=== PATIENT | female | born 1955 | race Caucasian/White ===

== ENCOUNTER → 2018-01-11 | Outpatient (CLI) | payer MEDICARE, MEDICAID ==
[~2018-01-11] MED LIST: ACET325T14 PO; ALBU18HF INH; ALPR0.25 PO; AMIT25TA PO; AMIT50TA PO; BENA40TA2 PO; CA C1TAB60 PO; CALC-76 PO; CALC1CAP8 PO; CEFT2FRO2 IV; CEPH-368 PO; CYAN50LO PO; CYCL-259 PO; DAPT500V6 IV; DHEA PO; DIAZ5TAB PO; ENAL2.5T32 PO; ESCI20TA10 PO; ESTR1TAB15 PO; GABA300C10 PO; GABA600T2 PO; HYDR-3240 PO; HYDR-3307 PO; HYDR-882 PO; KCL PO; LEVO100T5 PO; LEVO112T4 PO; LEVO125T5 PO; LORA0.5T PO; LORA10CA PO; LORA10TA62 PO; LOSA100T6 PO; MAGN400O7 PO; MELA5TAB10 SL; MELA5TAB19 PO; MELO15TA24 PO; MELO7.5T31 PO; METH750T87 PO; MONT10TA9 PO; MULT-508 PO; MULT-767 PO; NALT50TA PO; NYST60PO TD; OMEP20CA9 PO; ONDA4SOL2 IV; OXYC-307 PO; OXYC5TAB3 PO; POTA10TA6 PO; POTA20TA89 PO; PRAS1TAB2 PO; PROM25TA10 IM; PROP20TA PO; RIZA10TA20 PO; SENN8.6T98 PO; TIZA4TAB PO; TOPI100T8 PO; TOPI50TA8 PO; TRAM50TA2 PO; TRAZ150T62 PO; VENL150T PO; VISION ESSENTIALS PO; VIT B-12 PO; ZOLP-413 PO; [UNRECOGNIZED DRUG - CODE] PO; [UNRECOGNIZED DRUG - OTHER] PO; [UNRECOGNIZED DRUG - OTHER] PO
[2018-01-11 11:36] LABS: BASOPHILS # (AUTO) 0.02 x10^3/uL (0-0.1); BASOPHILS % (AUTO) 0 % (0-1); EOSINOPHILS # (AUTO) 0.28 x10^3/uL (0-0.4); EOSINOPHILS % (AUTO) 5 % (1-7); LYMPHOCYTES % (AUTO) 28 % (22-44); MD NO; MEAN CORPUSCULAR HEMOGLOBIN 31.6 pg (27.0-34.8); MEAN CORPUSCULAR HGB CONC 33.2 g/dL (32.4-35.8); MEAN CORPUSCULAR VOLUME 95.3 fL (80-100); MEAN PLATELET VOLUME 6.6 fL (7.4-10.4); MONOCYTES # (AUTO) 0.53 x10^3/uL (0.2-0.8); MONOCYTES % (AUTO) 9 % (2-9); NEUTROPHILS # (AUTO) 3.25 x10^3/uL (1.8-6.8); NEUTROPHILS % (AUTO) 57 % (42-75); PLATELET COUNT 248 x10^3/uL (130-400); RED BLOOD COUNT 4.39 x10^6/uL (3.82-5.3); RED CELL DISTRIBUTION WIDTH 16.2 % (9.6-15.2)
[2018-01-11 11:46] LABS: ALBUMIN 3.6 g/dL (3.4-5.0); ANION GAP 7 mmol/L (5-15); CALCIUM 8.9 mg/dL (8.5-10.1); CHLORIDE 112 mmol/L (98-107)
[2018-01-11 11:50] LABS: ALANINE AMINOTRANSFERASE 18 U/L (12-78); ALKALINE PHOSPHATASE 174 U/L (45-117); BILIRUBIN,TOTAL 0.5 mg/dL (0.2-1.0); TOTAL PROTEIN 7.5 g/dL (6.4-8.2)
[2018-01-11 13:03] LABS: HEMOGLOBIN A1C 5.3 % (4.2-6.3)
[2018-01-11 18:15] LABS: INTERNATIONAL NORMALIZED RATIO 1.15 (0.93-1.1); PROTHROMBIN TIME 11.9 Seconds (9.6-11.5)
== END | disposition home or self-care (01) ==
LOC: STAR 10:14
PROVIDERS: ATTEND Orthopaedic Surgery
DX: Z01.818 Encounter for other preprocedural examination (principal); M17.12 Unilateral primary osteoarthritis, left knee; I10 Essential (primary) hypertension; Z79.899 Other long term (current) drug therapy
CPT/HCPCS: 36415; 80053; 83036; 85025; 85610; 85730; 87081; 87147

== ENCOUNTER 2018-01-19 11:35 | Inpatient (IN) | payer MEDICARE, MEDICAID ==
[~2018-01-19] VITALS: Ht 163.8 cm; Wt 111.0 kg
[~2018-01-19 11:35] MED LIST changes: +BUPIVACAINE/PF 0.5% ONE; +EPINEPHRINE 1 MG/ML, 1ML ONE; +KETOROLAC 60 MG/2 ML ONE; -MELO7.5T31 PO; -OXYC5TAB3 PO; +SODIUM CHLORIDE 0.9% 100 ML ONE; -TRAM50TA2 PO; +TRANEXAMIC ACID 100 MG/ML, 10ML ONE
[2018-01-19] MEDS ORDERED: VANCOMYCIN PER PHARMACY MC ONE (11:55)
[2018-01-19 12:17] VITALS: BP 115/71
[2018-01-19] MEDS ORDERED: PHARMACOKINETIC CONSULTATION MC ONE (12:30)
[2018-01-19] MEDS ORDERED: VANCOMYCIN 1,800 MG in SODIUM CHLORIDE 0.9% 250 ML IV ONE (12:30)
[2018-01-19] MEDS ORDERED: OxyconTIN ER 10 MG TAB.ER ONE (12:30)
[2018-01-19] MEDS ORDERED: MIDAZOLAM 1 MG/ML, 2ML ONE (12:59)
[2018-01-19] MEDS ORDERED: FENTANYL PF 250 MCG/5ML ONE (12:59)
[2018-01-19] MEDS ORDERED: OxyconTIN ER 10 MG TAB.ER PO ONE (13:00)
[2018-01-19] MEDS ORDERED: SCOPOLAMINE PATCH, 1.5MG PATCH.TD72 TD ONE ×2 (13:11→13:30)
[2018-01-19] MEDS ORDERED: PROPOFOL 10 MG/ML, 20ML ONE (13:23)
[2018-01-19] MEDS ORDERED: DEXAMETHASONE 4 MG/ML, 1ML ONE (13:23)
[2018-01-19] MEDS ORDERED: LIDOCAINE-MPF 2% ,5ML ONE (13:23)
[2018-01-19] MEDS ORDERED: CEFAZOLIN 1,000 MG ONE (13:23)
[2018-01-19] MEDS ORDERED: ONDANSETRON 2MG/ML, 2ML ONE (13:23)
[2018-01-19] MEDS ORDERED: ACETAMINOPHEN 650 MG/20.3 ML UDC PO PRN (13:30)
[2018-01-19] MEDS ORDERED: HYDROmorphone 1 MG/ML, 1ML IV PRN ×2 (13:30→14:00)
[2018-01-19] MEDS ORDERED: ONDANSETRON 2MG/ML, 2ML IV PRN (13:30)
[2018-01-19] MEDS ORDERED: HYDROcodone/APAP 5/325 TABLET PO PRN (13:30)
[2018-01-19] MEDS ORDERED: SENNA/DOCUSATE TABLET PO PRN (13:30)
[2018-01-19] MEDS ORDERED: BISACODYL 10 MG SUPP PR PRN (13:30)
[2018-01-19] MEDS: CEFAZOLIN 2,000 MG in DEXTROSE 5% 50 ML IVPB SCH ×2 (13:30→21:38)
[2018-01-19] MEDS ORDERED: ONDANSETRON 4 MG TABLET PO PRN (13:30)
[2018-01-19] MEDS ORDERED: ALBUTEROL SULFATE 2.5 MG/3 ML NPPB PRN (13:30)
[2018-01-19] MEDS ORDERED: MAGNESIUM HYDROXIDE 8%, 30ML UDC PO PRN (13:30)
[2018-01-19] MEDS ORDERED: DIPHENHYDRAMINE 50 MG CAPSULE PO PRN (13:30)
[2018-01-19] MEDS ORDERED: ZOLPIDEM 5MG TABLET PO PRN (13:30)
[2018-01-19] MEDS ORDERED: morphine SULFATE 10 MG/ML, 1ML IV PRN (14:00)
[2018-01-19] MEDS ORDERED: FENTANYL PF 100 MCG/2ML IV PRN (14:00)
[2018-01-19] MEDS ORDERED: ACETAMINOPHEN 325 MG TABLET PO PRN (14:00)
[2018-01-19] MEDS ORDERED: hydrALAzine 20 MG/ML, 1ML IV PRN (14:00)
[2018-01-19] MEDS ORDERED: MEPERIDINE/PF 25MG/0.5ML IVPush PRN (14:00)
[2018-01-19] MEDS ORDERED: ALBUTEROL/IPRATROPIUM 2.5MG/0.5MG, 3 ML NPPB PRN (14:00)
[2018-01-19] MEDS ORDERED: LABETALOL 5MG/ML, 20ML IV PRN (14:00)
[2018-01-19] MEDS ORDERED: PROMETHAZINE 25 MG/ML, 1ML IV PRN (14:00)
[2018-01-19] MEDS ORDERED: PROMETHAZINE 12.5 MG SUPP PR PRN (14:00)
[2018-01-19] MEDS ORDERED: OXYcodone 5 MG/5 ML ORAL.SOL UDC PO PRN (14:00)
[2018-01-19] MEDS ORDERED: LORazepam 2 MG/ML, 1ML IVPush PRN (14:00)
[2018-01-19] MEDS ORDERED: VANCOMYCIN 1,000 MG ONE (15:06)
[2018-01-19] MEDS ORDERED: ALBUTEROL/IPRATROPIUM 2.5MG/0.5MG, 3 ML ONE (15:31)
[2018-01-19] MEDS ORDERED: OXYcodone 5 MG/5 ML ORAL.SOL UDC ONE (16:06)
[2018-01-19] MEDS: NS + 20MEQ KCL 1,000 ML IV SCH (18:06)
[2018-01-19] MEDS: GABAPENTIN 300 MG CAPSULE PO SCH ×2 (18:11→20:57)
[2018-01-19] MEDS: ASPIRIN 81 MG TABLET EC PO SCH (18:11)
[2018-01-19 19:17] VITALS: BP 131/68
[2018-01-19] MEDS: OXYcodone IR 5MG TABLET PO PRN (19:48)
[2018-01-19] MEDS: DOCUSATE 100 MG CAPSULE PO SCH (20:56)
[2018-01-19] MEDS: POTASSIUM CHLORIDE 20 MEQ TAB.ER.PRT PO SCH (20:56)
[2018-01-19] MEDS ORDERED: TRAZODONE 150MG TABLET PO SCH (21:00)
[2018-01-19] MEDS ORDERED: TIZANIDINE 4MG TABLET PO SCH (21:00)
[2018-01-19] MEDS ORDERED: TOPIRAMATE 25 MG TABLET PO SCH (21:00)
[2018-01-19] MEDS ORDERED: AMITRIPTYLINE 25 MG TABLET PO SCH (21:00)
[2018-01-19 23:42] VITALS: BP 137/91
[2018-01-20 02:35] VITALS: BP 136/67
[2018-01-20] MEDS: ASPIRIN 81 MG TABLET EC PO SCH (06:00)
[2018-01-20] MEDS ORDERED: DEXAMETHASONE 4 MG/ML, 1ML IVPush SCH (06:00)
[2018-01-20] MEDS: NS + 20MEQ KCL 1,000 ML IV SCH (07:30)
[2018-01-20 07:45] VITALS: BP 131/83
[2018-01-20] MEDS ORDERED: MONTELUKAST 10 MG TABLET PO SCH (09:00)
[2018-01-20] MEDS ORDERED: VENLAFAXINE 75 MG CAP ER PO SCH (09:00)
[2018-01-20] MEDS ORDERED: LOSARTAN 50MG TABLET PO SCH (09:00)
[2018-01-20] MEDS ORDERED: LEVOTHYROXINE 112 MCG TABLET PO SCH (09:00)
[2018-01-20] MEDS: GABAPENTIN 300 MG CAPSULE PO SCH (09:20)
[2018-01-20] MEDS: DOCUSATE 100 MG CAPSULE PO SCH (09:21)
[2018-01-20] MEDS: POTASSIUM CHLORIDE 20 MEQ TAB.ER.PRT PO SCH (09:23)
[2018-01-20] MEDS: OXYcodone IR 5MG TABLET PO PRN ×2 (09:24→13:40)
[2018-01-20] MEDS ORDERED: OXYC5TAB3 PO (10:38)
[2018-01-20] MEDS ORDERED: MELO7.5T31 PO (10:38)
[2018-01-20] MEDS ORDERED: TRAM50TA2 PO (10:39)
[2018-01-20 13:31] VITALS: BP 95/51
[2018-01-20 13:38] VITALS: BP 105/57
== END 2018-01-20 14:30 | disposition home or self-care (01) | DRG 470 ==
LOC: OUT 11:35 → ORIP 13:02 → 4NOR 16:32
PROVIDERS: ADMIT Orthopaedic Surgery; ATTEND Orthopaedic Surgery
PROC: 0SRD0J9 Replacement of Left Knee Joint with Synthetic Substitute, Cemented, Open Approach (ICD-10-PCS; principal; 2018-01-19 13:00)
DX: M17.32 Unilateral post-traumatic osteoarthritis, left knee (principal); E03.9 Hypothyroidism, unspecified; G89.29 Other chronic pain
CPT/HCPCS: 36415; 85014; 85018; 93005; 94640; C1713; J0171; J0690; J1100; J1885; J2250; J2405; J2704; J3010; J3370; J3480; J3490; J7620; C1776; J7050